=== PATIENT | female | born 1990 | race Caucasian/White ===

== ENCOUNTER 2018-01-02 22:13 | Emergency (ER) | payer BC, OTHER ==
[~2018-01-02] VITALS: Ht 167.6 cm; Wt 61.2 kg
--- NOTE | ~2018-01-02 | EKG ---
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
[2018-01-02] MEDS ORDERED: LAMOTRIGINE200 MG PO (22:27)
[2018-01-02] MEDS ORDERED: LEXAPRO 10 MG T10 M1 PO (22:27)
[2018-01-02] MEDS ORDERED: SINGULAIR 10 MG10 MG PO (22:28)
[2018-01-02] MEDS ORDERED: CLONAZEPAM 0.50.5 M1 PO (22:28)
[2018-01-02 23:06] LABS: ABSOLUTE NEUTROPHILS 2.4 thou/uL (1.4-8.2); BASOPHILS 0.5 % (0.0-2.0); EOSINOPHILS 4.4 % (0.0-3.0); HEMATOCRIT 37.9 % (37.0-47.0); HEMOGLOBIN 12.9 gm/dL (12.0-15.0); LYMPHOCYTES 41.4 % (24.0-44.0); MCH 29.6 pg (26.0-34.0); MCV 87.1 fL (80.0-100.0); MONOCYTES 9.4 % (1.0-8.0); PLATELET COUNT 192 thou/uL (150-400); POLYS 44.3 % (36.0-66.0); RBC 4.35 mil/uL (4.20-5.00); RDW 13.3 % (10.5-14.5); WBC 5.4 thou/uL (4.0-11.0)
[2018-01-02 23:20] LABS: URINE BILIRUBIN NEGATIVE (Negative); URINE BLOOD NEGATIVE (Negative); URINE CLARITY SL CLOUDY; URINE COLOR YELLOW; URINE GLUCOSE-RANDOM* NEGATIVE (Negative); URINE KETONES NEGATIVE (Negative); URINE LEUKOCYTES NEGATIVE (Negative); URINE NITRITE NEGATIVE (Negative); URINE PROTEIN (DIPSTICK) NEGATIVE (Negative); URINE UROBILINOGEN 0.2 E.U./dl (0.2-1.0)
[2018-01-02 23:25] LABS: ANION GAP 6 mmol/L (7-16); BUN 14 mg/dL (7-18); CALCIUM 8.6 mg/dL (8.5-10.1); CHLORIDE 108 mmol/L (98-107); CO2 28 mmol/L (21-32); CREATININE 0.9 mg/dL (0.6-1.0); GLUCOSE 110 mg/dL (74-106); POTASSIUM 3.9 mmol/L (3.5-5.1); SODIUM 142 mmol/L (136-145)
[2018-01-02 23:28] LABS: ALBUMIN 3.5 g/dL (3.4-5.0); SGOT 16 U/L (15-37); SGPT 20 U/L (30-65); TOTAL BILIRUBIN 0.2 mg/dL (<0.1-1.0); TROPONIN-I <0.06 ng/mL (<0.06)
[2018-01-02] MEDS ORDERED: ZOFRAN ODT4 MG PO (23:51)
[2018-01-02] MEDS ORDERED: ANTIVERT25 MG PO (23:51)
[2018-01-03 00:05] VITALS: BP 119/66
== END 2018-01-03 00:06 | disposition home or self-care (01) ==
LOC: ER 22:13
PROVIDERS: Physician Assistant
DX: R42 Dizziness and giddiness (principal); J30.2 Other seasonal allergic rhinitis; F31.9 Bipolar disorder, unspecified; F41.9 Anxiety disorder, unspecified; Z85.828 Personal history of other malignant neoplasm of skin; Z88.8 Allergy status to other drugs, medicaments and biological substances